=== PATIENT | male | born 1945 | race Native Hawaiian/Other Pacific Islander ===

== ENCOUNTER 2019-01-14 08:41 | Outpatient (CLI) | payer BC, OTHER | END 2019-01-14 19:19 | disposition home or self-care (01) | LOC: LABW 08:41 | PROVIDERS: Specialist | DX: I25.10 Atherosclerotic heart disease of native coronary artery without angina pectoris (principal); E78.2 Mixed hyperlipidemia; Z79.899 Other long term (current) drug therapy | CPT/HCPCS: 36415; 80061; 80076 ==

== ENCOUNTER 2019-01-24 07:12 | Outpatient (CLI) | payer BC, OTHER ==
[~2019-01-24] VITALS: Ht 175.3 cm; Wt 67.6 kg
== END 2019-01-24 23:46 | disposition home or self-care (01) ==
LOC: NM 07:12
DX: I25.10 Atherosclerotic heart disease of native coronary artery without angina pectoris (principal); Z01.810 Encounter for preprocedural cardiovascular examination; Z01.811 Encounter for preprocedural respiratory examination
CPT/HCPCS: 93306; A9500; J2785

== ENCOUNTER 2020-11-13 15:42 | Outpatient (CLI) | payer BC, OTHER | END 2020-11-13 20:00 | disposition home or self-care (01) | LOC: RAD 15:42 | PROVIDERS: ATTEND Nurse Practitioner Family | DX: M25.551 Pain in right hip (principal); I10 Essential (primary) hypertension ==

== ENCOUNTER 2023-05-10 09:08 | Outpatient (CLI) | payer OTHER | END 2023-05-10 18:54 | disposition home or self-care (01) | LOC: CT 09:08 | PROVIDERS: ATTEND Nurse Practitioner Family | DX: R31.9 Hematuria, unspecified (principal) ==